=== PATIENT | male | born 1950 | race Caucasian/White ===

== ENCOUNTER 2021-08-05 18:25 | Inpatient (IN) | payer MEDICARE, MEDICAID ==
[~2021-08-05] VITALS: Ht 180.3 cm; Wt 81.5 kg
[~2021-08-05 18:25] MED LIST: ASPI-920 PO; ATOR80TA PO; CARV6.253 PO; FURO40TA4 PO; GABA600T13 PO; INSU100V41 SQ; ISOS30TA84 PO; LANTUS SQ; LOSA50TA64 PO; METF750T46 PO; MONT-40 PO; NOR5T PO; PAX20T PO; PIOG45TA64 PO; VALS80TA32 PO
[2021-08-05] MEDS ORDERED: ondansetron/PF 4mg/2ml inj IV ONE (18:35)
[2021-08-05] MEDS ORDERED: normal saline 1000ML IV soln IVB ONE (18:35)
[2021-08-05 18:55] LABS: BASOPHILS % (AUTO) 0.3 % (0-1); EOSINOPHILS % (AUTO) 0.1 % (0-6); HEMATOCRIT 38.9 % (42.0-52.0); HEMOGLOBIN 13.2 g/dl (14.0-17.9); LYMPHOCYTES # (AUTO) 0.4 X10'3 (1.1-4.8); LYMPHOCYTES % (AUTO) 7.9 % (21-51); MEAN CORPUSCULAR HEMOGLOBIN 29.2 PG (27.0-31.0); MEAN CORPUSCULAR HGB CONC 33.9 g/dL (33.0-36.5); MEAN CORPUSCULAR VOLUME 86.3 FL (78-98); MEAN PLATELET VOLUME 9.6 FL (7.4-10.4); MONOCYTES # (AUTO) 0.3 X10'3 (0-0.9); MONOCYTES % (AUTO) 6.5 % (2-12); NEUTROPHILS # (AUTO) 4.5 X10'3 (1.8-7.7); NEUTROPHILS % (AUTO) 85.2 % (42-75); PLATELET COUNT 87 X10'3 (140-440); RED BLOOD COUNT 4.51 X10'6 (4.70-6.10); RED CELL DISTRIBUTION WIDTH 15.5 % (11.5-14.5); WHITE BLOOD COUNT 5.2 X10'3 (4.5-11.0)
--- NOTE | 2021-08-05 19:10 | NUR ---
Pt state he wants to go home, he does not want to be here. His family called ems, wanted him to come to the ER to get checked out. EMS glucose was 193
[2021-08-05 19:17] LABS: ALANINE AMINOTRANSFERASE 25 U/L (12-78); ALBUMIN 3.4 G/DL (3.4-5.0); ALBUMIN/GLOBULIN RATIO 1.1 (1.1-1.5); ALKALINE PHOSPHATASE 63 IU/L (46-116); ANION GAP 9 (8-16); ASPARTATE AMINO TRANSFERASE 35 U/L (10-37); BILIRUBIN,TOTAL 1.3 MG/DL (0.1-1.0); BLOOD UREA NITROGEN 31 MG/DL (7-18); BUN/CREATININE RATIO 14.1 (5.4-32.0); CALCIUM 8.9 MG/DL (8.5-10.1); CHLORIDE 97 MMOL/L (99-107); GLUCOSE 189 MG/DL (70-104); POTASSIUM 3.8 MMOL/L (3.5-5.1); SODIUM 135 MMOL/L (135-145); TOTAL CARBON DIOXIDE 29.1 MMOL/L (24-32); TOTAL PROTEIN 6.5 G/DL (6.4-8.2); eGFR 30 ML/MIN
--- NOTE | 2021-08-05 20:00 | NUR ---
Pt states he wants to leave, his daughter is on the way. Pt unable to stand up from the bed. Pt sat back down on bed and reclined. PIV site left a/c c/d/i s complication or adverse reaction. PIV fluid infusing well s complication.
[2021-08-05] MEDS ORDERED: temazepam 15mg capsule PO PRN (21:00)
[2021-08-05 21:37] LABS: CLARITY,URINE CLEAR (Clear); COLOR,URINE YELLOW (Yellow); GLUCOSE, URINE NEGATIVE (Neg); KETONES,URINE TRACE mg/dl (Neg); LEUKOCYTE ESTERASE ,URINE NEGATIVE (Neg); NITRITES, URINE NEGATIVE (Neg); OCCULT BLOOD,URINE SMALL (Neg); PH,URINE 5.5 (4.8-8.0); PROTEIN,URINE 100 mg/dl (Neg); UROBILINOGEN,URINE 0.2 E.U/dL (0.2-1.0)
[2021-08-05 21:43] LABS: BACTERIA,URINE NONE SEEN /HPF (Neg); RBC,URINE 0-2 /HPF (0-2); SQUAMOUS EPITHELIAL CELL,UR FEW /LPF (FEW); UA COLLECTION TYPE URINAL; WBC,URINE NONE SEEN /HPF (0-4)
--- NOTE | 2021-08-05 23:15 | NUR ---
Pt pink, alert, supine in bed. PIV site c/d/i s complication or adverse. Wheels locked, bed in lowest position. Will continue to monitor for acute changes and further needs. Waiting for daughter to arrive.
[2021-08-05] MEDS: normal saline 1000ml 1,000 ML IV SCH (23:30)
[2021-08-05] MEDS ORDERED: naloxone 0.4 mg/ml inj IV PRN (23:30)
[2021-08-05] MEDS ORDERED: mag hydrox/Alum hydrox/simeth 30ml oral suspension PO PRN (23:30)
[2021-08-05] MEDS ORDERED: diphenhydrAMINE 50 mg/ml inj IV PRN (23:30)
[2021-08-05] MEDS ORDERED: acetaminophen 650mg rectal suppository RC PRN (23:30)
[2021-08-05] MEDS ORDERED: diphenhydrAMINE 25mg capsule PO PRN (23:30)
[2021-08-05] MEDS ORDERED: ondansetron 4mg rapidly disintigrating tab PO PRN (23:30)
[2021-08-05] MEDS ORDERED: HYDROcodone/acetaminophen 5mg/325mg tablet PO PRN (23:30)
[2021-08-05] MEDS ORDERED: bisacodyl 10mg suppository rectal RC PRN (23:30)
[2021-08-05] MEDS ORDERED: ondansetron/PF 4mg/2ml inj IV PRN (23:30)
[2021-08-05] MEDS ORDERED: morphine 2 MG/ML inj. syringe IV PRN (23:30)
[2021-08-05] MEDS ORDERED: magnesium hydroxide 30ml (MOM) UD suspension PO PRN (23:30)
[2021-08-05] MEDS ORDERED: acetaminophen 325mg tablet PO PRN ×2 (23:30)
[2021-08-05] MEDS ORDERED: MESSAGE TO PHARMACY PO ONE (23:40)
[2021-08-05] MEDS ORDERED: DEXTROSE 15 GM of carb/4 tabs (each vial/BOTTLE has 4 tablets) PO PRN ×2 (23:40)
[2021-08-05] MEDS ORDERED: dextrose 50%-water 50ml dispensing syringe IV PRN ×2 (23:40)
[2021-08-05] MEDS ORDERED: glucagon, human recombinant 1mg kit SUBCUT PRN (23:40)
[2021-08-05] MEDS ORDERED: insulin Lispro (HumaLOG) vial - multi-dose SQ SCH (23:40)
--- NOTE | 2021-08-05 23:42 | NUR ---
Note chaitanya in ED - 08/05/21 at 2344 by NAOMY Pt to CT for CTA, pink, alert, no acute/resp distress. Both PIV sites c/d/i s complication.
--- NOTE | 2021-08-05 23:44 | NUR ---
Pt to CT, no acute/resp distress. PIV site c/d/i s complcation.
--- NOTE | 2021-08-06 | NUR ---
Pt back from CT. [place], alert, no acute/resp distress. PIV site c/d/i s complication.
[2021-08-06 00:19] LABS: CREATINE KINASE 438 U/L (39-308); LIPASE 156 U/L (73-393); MAGNESIUM 1.9 MG/DL (1.5-2.4); PHOSPHORUS 2.1 MG/DL (2.3-4.5)
[2021-08-06 00:31] LABS: APTT 30 SECONDS (22-32)
--- NOTE | 2021-08-06 01:18 | NUR ---
Pt pink, alert, supine in bed. PIV site c/d/i s complication or adverse. Wheels locked, bed in lowest position. Will continue to monitor for acute changes and further needs.
--- NOTE | 2021-08-06 02:28 | NUR ---
PT sleeping supine, pink, no acute/resp distress. Will continue to monitor pt for acute changes and further needs. PIV sites c/d/i s complication or adverse reaction. Pt laying supine, changes position as needed.
[2021-08-06 03:03] LABS: BASOPHILS % (AUTO) 0.2 % (0-1); EOSINOPHILS % (AUTO) 0.1 % (0-6); HEMATOCRIT 36.9 % (42.0-52.0); HEMOGLOBIN 12.5 g/dl (14.0-17.9); LYMPHOCYTES # (AUTO) 0.6 X10'3 (1.1-4.8); LYMPHOCYTES % (AUTO) 11.8 % (21-51); MEAN CORPUSCULAR HEMOGLOBIN 29.1 PG (27.0-31.0); MEAN CORPUSCULAR HGB CONC 33.8 g/dL (33.0-36.5); MEAN CORPUSCULAR VOLUME 86.1 FL (78-98); MEAN PLATELET VOLUME 9.6 FL (7.4-10.4); MONOCYTES # (AUTO) 0.4 X10'3 (0-0.9); MONOCYTES % (AUTO) 7.8 % (2-12); NEUTROPHILS # (AUTO) 4.1 X10'3 (1.8-7.7); NEUTROPHILS % (AUTO) 80.1 % (42-75); PLATELET COUNT 82 X10'3 (140-440); RED BLOOD COUNT 4.29 X10'6 (4.70-6.10); RED CELL DISTRIBUTION WIDTH 15.7 % (11.5-14.5); WHITE BLOOD COUNT 5.2 X10'3 (4.5-11.0)
[2021-08-06 03:16] LABS: ALANINE AMINOTRANSFERASE 23 U/L (12-78); ALKALINE PHOSPHATASE 58 IU/L (46-116); ANION GAP 10 (8-16); ASPARTATE AMINO TRANSFERASE 40 U/L (10-37); BILIRUBIN,TOTAL 0.9 MG/DL (0.1-1.0); BLOOD UREA NITROGEN 31 MG/DL (7-18); BUN/CREATININE RATIO 15.2 (5.4-32.0); CALCIUM 8.4 MG/DL (8.5-10.1); CHLORIDE 97 MMOL/L (99-107); CHOL/HDL RATIO 1.9 (0.00-4.99); CHOLESTEROL 94 MG/DL (0-200); CREATININE 2.04 MG/DL (0.60-1.10); GLUCOSE 165 MG/DL (70-104); HDL CHOLESTEROL 49 MG/DL (35-60); LDL CHOLESTEROL 41 MG/DL (50-100); SODIUM 135 MMOL/L (135-145); TOTAL CARBON DIOXIDE 28.3 MMOL/L (24-32); TRIGLYCERIDES 70 MG/DL (20-135); eGFR 32 ML/MIN
--- NOTE | 2021-08-06 03:45 | NUR ---
Pt pink, alert, supine in bed. PIV sites c/d/i s complication or adverse. Wheels locked, bed in lowest position. Will continue to monitor for acute changes and further needs. Pt wet from urine, pull up changed, and provided green scrub pants since pt sweat pants are now wet. Sweat pants pockets emptied, car keys, given to pt directly. Sweat pants placed in pt belonging bag.
--- NOTE | 2021-08-06 04:52 | NUR ---
Pt pink, alert, supine in bed. PIV sites c/d/i s complication or adverse. Wheels locked, bed in lowest position. Will continue to monitor for acute changes and further needs.
--- NOTE | 2021-08-06 05:57 | NUR ---
handoff report to dayshift RN
[2021-08-06 07:53] VITALS: BP 139/71
[2021-08-06] MEDS ORDERED: piperacillin/tazo 3.375gm/50ml 50 ML IV SCH (08:00)
[2021-08-06] MEDS ORDERED: furosemide 20 MG/2 ML vial IV SCH (08:00)
[2021-08-06] MEDS: normal saline 1000ml 1,000 ML IV SCH (08:13)
[2021-08-06] MEDS: docusate sod 100mg capsule PO SCH ×2 (08:14→19:45)
[2021-08-06] MEDS: pantoprazole 40mg Tablet.DR PO SCH (08:14)
--- NOTE | 2021-08-06 08:30 | NUR ---
Patient in room [facility]. I have received report from MANASA CLIFFORD and had the opportunity to ask questions and assume patient care.
[2021-08-06 11:50] VITALS: BP 134/77
--- NOTE | 2021-08-06 12:09 | NUR ---
Noted pt with T2DM, current A1c 10.0%. Attempted visit with pt at bedside however pt sleeping and did not wake with verbal cues. Written DM education with RD contact information left at bedside. Will f/u at another time for verbal education. Addendum: 08/06/21 at [address] Amended: Links added.
[2021-08-06] MEDS ORDERED: METF-438 PO (13:10)
[2021-08-06] MEDS ORDERED: VALS40TA11 PO (13:10)
[2021-08-06] MEDS ORDERED: ATOR-2 PO (13:14)
--- NOTE | 2021-08-06 18:12 | NUR ---
Problems reprioritized. Patient report given, questions answered & plan of care reviewed with FERNANDO CLIFFORD.
--- NOTE | 2021-08-06 18:28 | NUR ---
Patient in room [facility]. I have received report from VENESSA Matos and had the opportunity to ask questions and assume patient care. pt alert and oriented no complaints, denies syncope Addendum: 08/06/21 at 1841 by Camila Woody RN Amended: Links added.
--- NOTE | 2021-08-06 18:30 | NUR ---
Patient in room [facility]. I have received report from VENESSA Carlos and had the opportunity to ask questions and assume patient care. Visitor at bedside assisting pt with dinner, no complaints. Addendum: 08/06/21 at 1836 by Camila Woody RN Amended: Links added. Addendum: 08/06/21 at 1838 by Camila Woody RN dissregard note, wrong patient.
--- NOTE | 2021-08-06 19:00 | NUR ---
PT FORGETFUL OF SOME MEDICATIONS, STATES DAUGHTER WILL BE JHERE TOMORROW AND CAN GO OVER MEDS WITH HER Addendum: 08/06/21 at 2243 by Camila Woody RN Amended: Links added.
--- NOTE | 2021-08-06 19:25 | NUR ---
attenpted iv start x1 unable to access. 2nd rn to attempt. Addendum: 08/06/21 at 1943 by Camila Woody RN Amended: Links added.
--- NOTE | 2021-08-06 19:45 | NUR ---
daughter called tp check on pt. pt gave permission to speak with her and states she is poa. Discussed plan of care for night. Addendum: 08/06/21 at 2355 by Camila Woody RN Amended: Links added.
[2021-08-06 19:47] VITALS: BP 133/74
[2021-08-06] MEDS ORDERED: insulin glargine (Lantus) pen - multi-dose SQ SCH (21:00)
[2021-08-06 21:15] VITALS: BP_SYST 121; BP_SYST 124; BP_SYST 129; BP_DIAS 67; BP_DIAS 76; BP_DIAS 86
[2021-08-06] MEDS: furosemide 20 MG/2 ML vial IV SCH (21:35)
--- NOTE | 2021-08-07 04:49 | NUR ---
pt uses urinal some inc. linen change guanako care done. no c/o pain. foam dressing to sacrum, sacrum reddened, unchanged from beginning of shift. enc freq position change Addendum: 08/07/21 at 0451 by Camila Woody RN Amended: Links added.
--- NOTE | 2021-08-07 06:23 | NUR ---
Problems reprioritized. Patient report given, questions answered & plan of care reviewed with VENESSA BRYANT. Addendum: 08/07/21 at 0624 by Camila Woody RN Amended: Links added.
[2021-08-07 06:46] LABS: BASOPHILS % (AUTO) 0.2 % (0-1); EOSINOPHILS # (AUTO) 0.1 X10'3 (0-0.9); EOSINOPHILS % (AUTO) 1.5 % (0-6); HEMATOCRIT 37.9 % (42.0-52.0); LYMPHOCYTES # (AUTO) 0.9 X10'3 (1.1-4.8); LYMPHOCYTES % (AUTO) 17.7 % (21-51); MEAN CORPUSCULAR HEMOGLOBIN 29.4 PG (27.0-31.0); MEAN CORPUSCULAR HGB CONC 34.4 g/dL (33.0-36.5); MEAN CORPUSCULAR VOLUME 85.6 FL (78-98); MEAN PLATELET VOLUME 9.5 FL (7.4-10.4); MONOCYTES # (AUTO) 0.7 X10'3 (0-0.9); MONOCYTES % (AUTO) 12.7 % (2-12); NEUTROPHILS # (AUTO) 3.6 X10'3 (1.8-7.7); NEUTROPHILS % (AUTO) 67.9 % (42-75); PLATELET COUNT 82 X10'3 (140-440); RED BLOOD COUNT 4.43 X10'6 (4.70-6.10); RED CELL DISTRIBUTION WIDTH 15.5 % (11.5-14.5); WHITE BLOOD COUNT 5.3 X10'3 (4.5-11.0)
[2021-08-07 07:00] VITALS: BP 130/85
[2021-08-07 07:00] LABS: ALANINE AMINOTRANSFERASE 25 U/L (12-78); ALBUMIN 2.8 G/DL (3.4-5.0); ALBUMIN/GLOBULIN RATIO 0.9 (1.1-1.5); ALKALINE PHOSPHATASE 51 IU/L (46-116); ANION GAP 10 (8-16); ASPARTATE AMINO TRANSFERASE 49 U/L (10-37); BILIRUBIN,TOTAL 0.7 MG/DL (0.1-1.0); BLOOD UREA NITROGEN 34 MG/DL (7-18); BUN/CREATININE RATIO 16.3 (5.4-32.0); CHLORIDE 101 MMOL/L (99-107); CREATININE 2.08 MG/DL (0.60-1.10); GLUCOSE 70 MG/DL (70-104); POTASSIUM 3.3 MMOL/L (3.5-5.1); SODIUM 141 MMOL/L (135-145); TOTAL CARBON DIOXIDE 29.6 MMOL/L (24-32); eGFR 32 ML/MIN
[2021-08-07] MEDS: pantoprazole 40mg Tablet.DR PO SCH (07:51)
[2021-08-07] MEDS: docusate sod 100mg capsule PO SCH (07:51)
[2021-08-07] MEDS: furosemide 20 MG/2 ML vial IV SCH (07:52)
[2021-08-07 10:39] VITALS: BP 148/77
[2021-08-07 10:40] VITALS: BP_SYST 148; BP_SYST 155; BP_DIAS 77; BP_DIAS 81; BP_DIAS 82
--- NOTE | 2021-08-07 11:36 | NUR ---
Message sent to PT concerning [facility]: needs to be seen for possible DC today.
[2021-08-07] MEDS ORDERED: FURO40TA4 PO (12:13)
--- NOTE | 2021-08-07 14:17 | NUR ---
PATIENT IV WAS REMOVED AND DIRECT PRESSURE WAS APPLIEED WITH GAUZE AND TAPE APPLIED UNTIL BLEEDING WAS STOPPED Addendum: 08/07/21 at 1435 by Dwain MALIK PATIENT WAS PROVIDED DISCHARGE PACKAGE AND INFORMED OF NEW MEDICATIONS AND TO CONTINUE HOME MEDICATIONS. PATIENT UNDERSTOOD DISCHARGE INSTRUCTIONS, DID NOT HAVE ANY FURTHER QUESTIONS AND SIGNED ACKNOWLEDGEMENT. PATIENT WAS ESCORTED IN WHEELCHAIR BY [place] TO THE EXIT WHERE PATIENTS DAUGHTER WAS WAITING TO PICK HIM UP AND TAKE HIM HOME. Addendum: 08/07/21 at 1436 by Dwain MALIK Amended: Links added.
== END 2021-08-07 14:10 | disposition home health service (06) | DRG 291 ==
LOC: ER 18:25 → ED HOLD 21:33 → SUR 3N 08-06 07:35 → UNDODISIN 08-07 13:35
PROVIDERS: ADMIT Family Medicine; ATTEND Internal Medicine
DX: I13.0 Hypertensive heart and chronic kidney disease with heart failure and stage 1 through stage 4 chronic kidney disease, or unspecified chronic kidney disease (principal); I50.23 Acute on chronic systolic (congestive) heart failure; K80.10 Calculus of gallbladder with chronic cholecystitis without obstruction; N17.9 Acute kidney failure, unspecified; A08.4 Viral intestinal infection, unspecified; D69.6 Thrombocytopenia, unspecified; E11.22 Type 2 diabetes mellitus with diabetic chronic kidney disease; E11.65 Type 2 diabetes mellitus with hyperglycemia; E86.0 Dehydration; K21.9 Gastro-esophageal reflux disease without esophagitis; F41.9 Anxiety disorder, unspecified; W18.39XA Other fall on same level, initial encounter; K76.9 Liver disease, unspecified; R82.4 Acetonuria; F15.90 Other stimulant use, unspecified, uncomplicated; I27.20 Pulmonary hypertension, unspecified; K86.89 Other specified diseases of pancreas; M47.816 Spondylosis without myelopathy or radiculopathy, lumbar region; N18.30 Chronic kidney disease, stage 3 unspecified; R29.6 Repeated falls; Z79.4 Long term (current) use of insulin; Z79.84 Long term (current) use of oral hypoglycemic drugs; Z79.899 Other long term (current) drug therapy; Y93.89 Activity, other specified; Y92.091 Bathroom in other non-institutional residence as the place of occurrence of the external cause; Y99.8 Other external cause status
CPT/HCPCS: 36415; 70450; 71045; 74176; 80053; 80061; 81001; 82550; 82948; 83036; 83605; 83690; 83735; 83880; 84100; 84145; 84443; 85025; 85610; 85730; 87040; 87081; 93005; 93306; 96361; 96374; 97116; 97161; 97530; 99285; G0378; J1815; J1940; J2405; J2543; J7030